=== PATIENT | male | born 1945 | race Caucasian/White ===

== ENCOUNTER 2021-01-18 16:49 | Emergency (ER) | payer SELFPAY ==
[~2021-01-18] VITALS: Ht 182.9 cm; Wt 116.6 kg
[2021-01-18] MEDS ORDERED: LIDOCAINE HCL 1% LOCAL INJ 20 ML VIAL ONE (17:12)
== END 2021-01-18 17:26 | disposition home or self-care (01) ==
LOC: ER 17:26
DX: S91.011A Laceration without foreign body, right ankle, initial encounter (principal); W54.0XXA Bitten by dog, initial encounter; Y92.008 Other place in unspecified non-institutional (private) residence as the place of occurrence of the external cause; I10 Essential (primary) hypertension; E11.9 Type 2 diabetes mellitus without complications; E78.5 Hyperlipidemia, unspecified
CPT/HCPCS: 12001; 99284; J2001